=== PATIENT | female | born 1990 | race Caucasian/White ===

== ENCOUNTER 2022-08-17 19:37 | Emergency (ER) | payer OTHER ==
[2022-08-17] MEDS ORDERED: Acetaminophen 500 MG TAB ONE ×2 (20:24→20:28)
[2022-08-17 20:43] LABS: #Basophils 0.1 10x3/uL (0.0-0.2); #Eosinphils 0.2 10x3/uL (0.0-0.5); #Monocytes 0.7 10x3/uL (0.0-1.1); #Neutrophils 7.1 10x3/uL (1.5-8.4); %Basophils 0.5 % (0.0-2.0); %Eosinophils 2.3 % (0.0-6.0); %Lymphocytes 23.5 % (18.0-47.0); %Monocytes 6.9 % (0.0-10.0); %Neutrophils 66.6 % (40.0-75.0); Hemoglobin 14.7 g/dL (12.0-15.5); Mean Corpuscular HGB CONC 33.9 g/dL (32.0-36.0); Mean Corpuscular Hemoglobin 30.5 pg (27.0-33.0); Mean Corpuscular Volume 89.8 fl (81.6-98.3); Platelet Count 193 10x3/uL (150-450); RBC Distribution Width 12.2 % (11.5-14.5); Red Blood Cell (RBC) Count 4.82 10x6/uL (3.90-5.03); White Blood Cell (WBC) Count 10.6 10x3/uL (3.5-10.5)
[2022-08-17 20:53] LABS: ALT (SGPT) 13 U/L (8-55); AST (SGOT) 17 U/L (5-34); Albumin 4.3 g/dL (3.5-5.0); Alkaline Phosphatase 39 U/L (40-110); Anion Gap 11 mmol/L (10-20); BUN (Urea Nitrogen) 8 mg/dL (7.0-18.7); Bilirubin, Total 0.2 mg/dL (0.2-1.2); Calc. Creatinine Clearance 0 mL/min (70-130); Calcium 9.4 mg/dL (7.8-10.44); Carbon Dioxide 23 mmol/L (22-29); Chloride 106 mmol/L (98-107); Estimated GFR 115; Globulin 2.7 g/dL (2.4-3.5); Glucose 85 mg/dL (70-105); Potassium 3.2 mmol/L (3.5-5.1); Sodium 137 mmol/L (136-145)
[2022-08-17 21:05] LABS: Bilirubin Neg (Negative); Blood, Urine Negative (Negative); Clarity Clear (Clear); Glucose, Urine (Dipstick) 100 mg/dL (Negative); Ketone, Urine Negative (Negative); Leukocyte 25 (Negative); Nitrite Negative (Negative); Protein, Urine (Dipstick) Negative (Neg-Trace); Specific Gravity, Urine 1.015 (1.005-1.030); Urobilinogen Normal mg/dL (Less than 2); pH, Urine 6.5 (5.0-9.0)
[2022-08-17 21:09] LABS: Bacteria/HPF Rare-Few HPF (None Seen); RBC/HPF 0-3 HPF (0-3)
[2022-08-17] MEDS ORDERED: Potassium Chloride 20 MEQ TAB ONE (22:02)
== END 2022-08-17 22:15 | disposition home or self-care (01) ==
LOC: CSHERS 19:37
DX: O23.41 Unspecified infection of urinary tract in pregnancy, first trimester (principal); E87.6 Hypokalemia; Z87.891 Personal history of nicotine dependence; Z3A.01 Less than 8 weeks gestation of pregnancy
CPT/HCPCS: 80053; 81003; 81015; 84702; 85025; 86900; 86901; 87086

== ENCOUNTER 2022-12-30 08:39 | Day surgery (SDC) | payer OTHER ==
[2022-12-30 09:16] VITALS: BMI 27.1
[2022-12-30] MEDS ORDERED: hydrALAZINE 20 MG/ML VIAL SLOW IVP PRN (10:36)
[2022-12-30 11:04] LABS: Bilirubin Neg (Negative); Blood, Urine Negative (Negative); Clarity Slightly Cloudy (Clear); Glucose, Urine (Dipstick) Normal (Negative); Ketone, Urine Negative (Negative); Leukocyte Negative (Negative); Nitrite Negative (Negative); Protein, Urine (Dipstick) Negative (Neg-Trace); Urobilinogen Normal mg/dL (Less than 2); pH, Urine 6.5 (5.0-9.0)
[2022-12-30] MEDS ORDERED: Acetaminophen 500 MG TAB PO SCH (11:15)
[2022-12-30 11:31] LABS: Bacteria/HPF 3+ HPF (None Seen); CAUTI Indications for Culture Pregnancy; RBC/HPF 0-3 HPF (0-3); Urine Culture Reflex Yes Yes; WBC/HPF 0-3 HPF (0-3)
[2022-12-30 11:52] LABS: FFN Internal QC Analyzer PASS (PASS); Fetal Fibronectin Negative (Negative)
[2022-12-30 11:53] LABS: FFN Internal QC Cassette PASS (PASS)
[2022-12-30] MEDS ORDERED: Cyclobenzaprine 10 MG TAB PO SCH (14:45)
[2022-12-30 20:01] LABS: Chlamydia by PCR, Vaginal Swab Not Detected (NotDetected); GC by PCR, Vaginal Swab Not Detected (NotDetected); Tric.vaginalis PCR,Vaginal Sw Not Detected (NotDetected)
== END 2022-12-30 15:00 | disposition home or self-care (01) ==
LOC: CSHLD/OP 08:39
PROVIDERS: ATTEND Emergency Medicine
DX: O47.03 False labor before 37 completed weeks of gestation, third trimester (principal); O99.891 Other specified diseases and conditions complicating pregnancy; M54.50 Low back pain, unspecified; O99.013 Anemia complicating pregnancy, third trimester; D64.9 Anemia, unspecified; Z3A.30 30 weeks gestation of pregnancy; Z87.59 Personal history of other complications of pregnancy, childbirth and the puerperium; Z79.899 Other long term (current) drug therapy; Z88.8 Allergy status to other drugs, medicaments and biological substances; Z88.6 Allergy status to analgesic agent; Z91.048 Other nonmedicinal substance allergy status
CPT/HCPCS: 76817; 81001; 82731; 87086; 87480; 87491; 87510; 87591; 87660; 87661

== ENCOUNTER 2023-01-30 17:06 | Day surgery (SDC) | payer OTHER | END 2023-01-30 19:42 | disposition home or self-care (01) | LOC: CSHLD/OP 17:06 | PROVIDERS: ATTEND Pathology Anatomic Pathology & Clinical Pathology | DX: O36.8130 Decreased fetal movements, third trimester, not applicable or unspecified (principal); O99.013 Anemia complicating pregnancy, third trimester; D64.9 Anemia, unspecified; Z3A.35 35 weeks gestation of pregnancy; Z88.6 Allergy status to analgesic agent; Z91.09 Other allergy status, other than to drugs and biological substances; Z79.899 Other long term (current) drug therapy | CPT/HCPCS: 76819 ==

== ENCOUNTER 2023-02-23 13:56 | Inpatient (IN) | payer OTHER ==
[2023-02-23] MEDS ORDERED: hydrALAZINE 20 MG/ML VIAL SLOW IVP PRN ×2 (14:39→20:37)
[2023-02-23 15:01] VITALS: BMI 29.0
[2023-02-23 15:08] LABS: Bilirubin Neg (Negative); Blood, Urine 10 (Negative); Clarity Cloudy (Clear); Glucose, Urine (Dipstick) Normal (Negative); Ketone, Urine 5 mg/dL (Negative); Leukocyte 500 (Negative); Nitrite Negative (Negative); Protein, Urine (Dipstick) 30 mg/dl (Neg-Trace); Urobilinogen Normal mg/dL (Less than 2)
[2023-02-23 15:39] LABS: RBC/HPF 0-3 HPF (0-3)
[2023-02-23 15:40] LABS: Bacteria/HPF 3+ HPF (None Seen); CAUTI Indications for Culture Pregnancy; Transitional Epithelial 0-3 HPF (None Seen); WBC/HPF 21-50 HPF (0-3)
[2023-02-23 15:42] LABS: Urine Culture Reflex Yes Yes
[2023-02-23 15:49] LABS: #Eosinphils 0.1 10x3/uL (0.0-0.5); #Monocytes 0.6 10x3/uL (0.0-1.1); #Neutrophils 6.8 10x3/uL (1.5-8.4); %Basophils 0.4 % (0.0-2.0); %Eosinophils 0.8 % (0.0-6.0); %Lymphocytes 21.9 % (18.0-47.0); %Monocytes 6.1 % (0.0-10.0); %Neutrophils 70.5 % (40.0-75.0); Hemoglobin 12.1 g/dL (12.0-15.5); Mean Corpuscular HGB CONC 32.7 g/dL (32.0-36.0); Mean Corpuscular Hemoglobin 28.1 pg (27.0-33.0); Mean Platelet Volume 12.8 fl (7.4-10.4); Platelet Count 129 10x3/uL (150-450); RBC Distribution Width 13.6 % (11.5-14.5); White Blood Cell (WBC) Count 9.7 10x3/uL (3.5-10.5)
[2023-02-23 16:09] LABS: ALT (SGPT) Less than 7 U/L (8-55); AST (SGOT) 15 U/L (5-34); Albumin 3.4 g/dL (3.5-5.0); Alkaline Phosphatase 163 U/L (40-110); Anion Gap 16 mmol/L (10-20); BUN (Urea Nitrogen) 7 mg/dL (7.0-18.7); Bilirubin, Total 0.2 mg/dL (0.2-1.2); Calc. Creatinine Clearance 114 mL/min (70-130); Carbon Dioxide 16 mmol/L (22-29); Chloride 107 mmol/L (98-107); Estimated GFR 104; Globulin 2.7 g/dL (2.4-3.5); Glucose 98 mg/dL (70-105); Lipase 38 U/L (8-78); Potassium 3.7 mmol/L (3.5-5.1); Protein, Total 6.1 g/dL (6.0-8.3); Sodium 135 mmol/L (136-145)
[2023-02-23] MEDS ORDERED: fentaNYL 50 mcg/mL 1 mL Vial ONE (16:43)
[2023-02-23] MEDS ORDERED: fentaNYL 50 mcg/mL 1 mL Vial SLOW IVP SCH ×2 (16:45→20:00)
[2023-02-23] MEDS ORDERED: Sodium Chloride 0.9% 1,000 ML IV SCH (17:00)
[2023-02-23 17:48] LABS: INR-International Normal Ratio 0.9; PTT 23.5 sec (22.0-33.0); Prothrombin Time 9.8 sec (9.5-12.1)
[2023-02-23] MEDS: cefTRIAXone\\ROCEPHIN 1 GM in Sodium Chloride 0.9% 100 ML IVPB SCH (17:54)
[2023-02-23] MEDS ORDERED: Lactated Ringer's 1,000 ML IV SCH (19:30)
[2023-02-23] MEDS ORDERED: Ondansetron PF 4 MG/2 ML Vial IVP PRN ×2 (20:37→22:54)
[2023-02-23] MEDS ORDERED: Lidocaine 1% (PF) 30 ML VIAL SC PRN (20:37)
[2023-02-23] MEDS ORDERED: Promethazine HCl 25 MG/ML VIAL IM PRN ×2 (20:37→22:54)
[2023-02-23] MEDS ORDERED: Misoprostol 200 MCG TAB PR PRN (20:38)
[2023-02-23] MEDS ORDERED: Carboprost 250 MCG/ML AMP IM PRN (20:38)
[2023-02-23] MEDS ORDERED: Methylergonovine 0.2 MG/ML VIAL IM PRN (20:38)
[2023-02-23] MEDS ORDERED: Tranexamic Acid 1,000 MG/10 ML VIAL IVP PRN (20:38)
[2023-02-23] MEDS ORDERED: Diphenoxylate HCl/Atropine Tablet PO PRN (20:38)
[2023-02-23] MEDS ORDERED: Oxytocin 30 units/NS 500 ML 500 ML IV SCH ×2 (20:45)
[2023-02-23] MEDS ORDERED: Penicillin G Potassium 5 MILL.UNITS in Sodium Chloride 0.9% 100 ML IVPB SCH (20:45)
[2023-02-23] MEDS: Lactated Ringer's 1,000 ML IV SCH (21:16)
[2023-02-23 22:04] LABS: HBSAg Index 0.14 S/CO (0-0.99); Hep B Surf Ag - L&D Non-Reactive S/CO (NonReactive)
[2023-02-23] MEDS ORDERED: fentaNYL/Ropivacaine Epidural 100 ML ONE (22:04)
[2023-02-23 22:05] LABS: Syphilis Antibody Nonreactive (Nonreactive); Syphilis Antibody Index 0.06 S/CO (<1.00 Non-Reactive)
[2023-02-23 22:08] LABS: Hematocrit 37.8 % (34.9-44.5); Hemoglobin 12.3 g/dL (12.0-15.5); Mean Corpuscular HGB CONC 32.5 g/dL (32.0-36.0); Mean Corpuscular Volume 86.1 fl (81.6-98.3); Mean Platelet Volume 12.3 fl (7.4-10.4); Platelet Count 126 10x3/uL (150-450); RBC Distribution Width 13.6 % (11.5-14.5); Red Blood Cell (RBC) Count 4.39 10x6/uL (3.90-5.03); White Blood Cell (WBC) Count 11.3 10x3/uL (3.5-10.5)
[2023-02-23] MEDS ORDERED: Lactated Ringer's 500 ML IV PRN (22:54)
[2023-02-23] MEDS ORDERED: Moisturizing Cream (Eucerin) 113 GM JAR TOP PRN (22:54)
[2023-02-23] MEDS ORDERED: diphenhydrAMINE 50 MG/ML VIAL IVP PRN (22:54)
[2023-02-23] MEDS ORDERED: ePHEDrine Sulfate 50 MG/10 ML VIAL SLOW IVP PRN (22:54)
[2023-02-23] MEDS ORDERED: Naloxone HCl 0.4 mg/ml Vial IVP PRN ×2 (22:54)
[2023-02-23] MEDS ORDERED: fentaNYL 2 mcg/Ropivacaine 0.2% Epidural 100 ML CADD EPIDURAL SCH (23:00)
[2023-02-23] MEDS ORDERED: Communication Order-Pharmacy FS SCH (23:00)
[2023-02-24] MEDS: Penicillin G 2.5 MILL.units 2.5 MILL.UNITS in Premix Bag 1 BAG IVPB SCH ×3 (01:03→13:51)
[2023-02-24] MEDS: Acetaminophen 325 MG TAB PO PRN ×2 (05:08→16:26)
[2023-02-24] MEDS ORDERED: Meclizine HCl 12.5 MG TAB PO PRN ×2 (12:57→13:12)
[2023-02-24] MEDS ORDERED: hydrALAZINE 20 MG/ML VIAL SLOW IVP PRN (13:12)
[2023-02-24] MEDS ORDERED: diphenhydrAMINE 25 MG CAP PO PRN (13:12)
[2023-02-24] MEDS ORDERED: Bisacodyl 10 MG SUPP PR PRN (13:12)
[2023-02-24] MEDS ORDERED: Milk Of Magnesia 30 ML UDCUP PO PRN (13:12)
[2023-02-24] MEDS ORDERED: Lanolin Ointment 7 GM TUBE TOP PRN (13:12)
[2023-02-24] MEDS ORDERED: Boostrix 0.5 ML (Tdap) VIAL (>/=7 yrs of age) IM ONE (13:12)
[2023-02-24] MEDS ORDERED: Ferrous Sulfate 325 MG TAB PO SCH (13:30)
[2023-02-24] MEDS: Lactated Ringer's 1,000 ML IV SCH ×2 (13:50→13:51)
[2023-02-24] MEDS ORDERED: Ibuprofen 800 MG TAB PO SCH (14:00)
[2023-02-24] MEDS ORDERED: Witch Hazel-Glycerin 1 EACH JAR TOP PRN (15:32)
[2023-02-24] MEDS ORDERED: Benzocaine-Menthol 82.5 ML CAN TOP PRN (15:32)
[2023-02-24] MEDS ORDERED: ePHEDrine Sulfate 50 MG/10 ML VIAL ONE (16:00)
[2023-02-24] MEDS ORDERED: Bupivacaine 0.25% HCL 30 ML VIAL ONE (16:00)
[2023-02-24] MEDS: cefTRIAXone\\ROCEPHIN 1 GM in Sodium Chloride 0.9% 100 ML IVPB SCH (17:33)
[2023-02-24] MEDS ORDERED: Ketorolac Tromethamine 30 MG/ML VIAL IVP SCH (20:15)
[2023-02-24] MEDS ORDERED: Cyclobenzaprine 10 MG TAB PO SCH (20:15)
[2023-02-24] MEDS: Docusate 100 MG CAP PO SCH (20:30)
[2023-02-25] MEDS: Acetaminophen 325 MG TAB PO PRN (01:40)
[2023-02-25] MEDS: Ibuprofen 800 MG TAB PO SCH ×2 (03:35→12:47)
[2023-02-25 07:53] VITALS: BP 114/71; TEMP 97.7
[2023-02-25] MEDS: Docusate 100 MG CAP PO SCH (08:23)
[2023-02-25] MEDS ORDERED: Dibucaine 1% Ointment 28.35 GM TUBE TOP SCH (09:00)
[2023-02-25] MEDS ORDERED: Prenatal Vitamin 1 TAB PO SCH (09:00)
== END 2023-02-25 14:40 | disposition home or self-care (01) | DRG 805 ==
LOC: CSHLD/OP 13:56 → CSHLD 20:29 → CSHPP 02-24 14:20
PROVIDERS: ADMIT Emergency Medicine; ATTEND Emergency Medicine
PROC: 10E0XZZ Delivery of Products of Conception, External Approach (ICD-10-PCS; principal; 2023-02-24)
PROC: 0KQM0ZZ Repair Perineum Muscle, Open Approach (ICD-10-PCS; 2023-02-24)
PROC: 10907ZC Drainage of Amniotic Fluid, Therapeutic from Products of Conception, Via Natural or Artificial Opening (ICD-10-PCS; 2023-02-24)
DX: O26.643 Intrahepatic cholestasis of pregnancy, third trimester (principal); K83.1 Obstruction of bile duct; Z37.0 Single live birth; N39.0 Urinary tract infection, site not specified; O23.43 Unspecified infection of urinary tract in pregnancy, third trimester; O99.824 Streptococcus B carrier state complicating childbirth; Z3A.38 38 weeks gestation of pregnancy; Z79.899 Other long term (current) drug therapy; Z91.048 Other nonmedicinal substance allergy status; Z88.8 Allergy status to other drugs, medicaments and biological substances; O75.89 Other specified complications of labor and delivery; K64.3 Fourth degree hemorrhoids; O70.1 Second degree perineal laceration during delivery
CPT/HCPCS: 36415; 51702; 76705; 80053; 81001; 82239; 83010; 83615; 83690; 85025; 85610; 85730; 86780; 86850; 86900; 86901; 87086; 87340; 99285; J0696; J1885; J2540; J2590; J3010; J3490; J7050; J7120; S0020

== ENCOUNTER 2023-06-08 11:35 | Emergency (ER) | payer OTHER, SELFPAY ==
[2023-06-08] MEDS ORDERED: Acetaminophen 500 MG TAB ONE (12:07)
[2023-06-08 12:32] LABS: Bilirubin Neg (Negative); Blood, Urine Negative (Negative); Glucose, Urine (Dipstick) Normal (Negative); Ketone, Urine Negative (Negative); Leukocyte Negative (Negative); Nitrite Negative (Negative); Protein, Urine (Dipstick) Negative (Neg-Trace); Specific Gravity, Urine 1.015 (1.005-1.030); Urobilinogen Normal mg/dL (Less than 2)
[2023-06-08 12:35] LABS: Pregnancy Test - Urine (BHCG) Negative (Negative)
[2023-06-08 12:36] LABS: Pregu Control Background? CLEAR/WHITE (CLR/WHITE); Pregu Control Bar Appear? YES (CONTROL BAR); Specific Gravity 1.015 (1.002-1.036)
[2023-06-08 13:20] LABS: #Basophils 0.1 10x3/uL (0.0-0.2); #Eosinphils 0.2 10x3/uL (0.0-0.5); #Monocytes 0.4 10x3/uL (0.0-1.1); %Eosinophils 2.9 % (0.0-6.0); %Lymphocytes 36.7 % (18.0-47.0); %Monocytes 7.2 % (0.0-10.0); %Neutrophils 51.9 % (40.0-75.0); Hematocrit 40.4 % (34.9-44.5); Hemoglobin 13.4 g/dL (12.0-15.5); Mean Corpuscular HGB CONC 33.2 g/dL (32.0-36.0); Mean Corpuscular Hemoglobin 28.9 pg (27.0-33.0); Mean Corpuscular Volume 87.3 fl (81.6-98.3); Mean Platelet Volume 10.9 fl (7.4-10.4); Platelet Count 179 10x3/uL (150-450); RBC Distribution Width 13.2 % (11.5-14.5); Red Blood Cell (RBC) Count 4.63 10x6/uL (3.90-5.03); White Blood Cell (WBC) Count 5.9 10x3/uL (3.5-10.5)
[2023-06-08 13:34] LABS: ALT (SGPT) 11 U/L (8-55); AST (SGOT) 14 U/L (5-34); Albumin 4.2 g/dL (3.5-5.0); Alkaline Phosphatase 65 U/L (40-110); Anion Gap 12 mmol/L (10-20); BUN (Urea Nitrogen) 11 mg/dL (7.0-18.7); Bilirubin, Total 0.4 mg/dL (0.2-1.2); Calc. Creatinine Clearance 0 mL/min (70-130); Carbon Dioxide 23 mmol/L (22-29); Chloride 108 mmol/L (98-107); Estimated GFR 95; Globulin 2.2 g/dL (2.4-3.5); Glucose 92 mg/dL (70-105); Lipase 36 U/L (8-78); Potassium 3.8 mmol/L (3.5-5.1); Protein, Total 6.4 g/dL (6.0-8.3); Sodium 139 mmol/L (136-145)
[2023-06-08 13:49] LABS: Clarity Clear (Clear)
[2023-06-08 13:51] LABS: Bacteria/HPF 2+ HPF (None Seen); CAUTI Indications for Culture Pelvic or flank pain; RBC/HPF 0-3 HPF (0-3); Transitional Epithelial 0-3 HPF (None Seen); WBC/HPF 0-3 HPF (0-3)
[2023-06-08 13:52] LABS: Urine Culture Reflex No No
== END 2023-06-08 14:10 | disposition home or self-care (01) ==
LOC: CSHERS 11:35
DX: R10.9 Unspecified abdominal pain (principal); Z87.891 Personal history of nicotine dependence
CPT/HCPCS: 36415; 76856; 80053; 81001; 81025; 83690; 85025